=== PATIENT | male | born 1950 | race Caucasian/White ===

== ENCOUNTER → 2016-10-24 | Outpatient (CLI) | payer OTHER ==
[~2016-10-24] MED LIST: ASPCH81; LRT5 PO; MULT-506 PO
[2016-10-24 13:16] LABS: ALT/SGPT 26 U/L (12-78); AST/SGOT 21 U/L (15-37); BLOOD UREA NITROGEN 25 mg/dl (7-18); BUN/CREATININE RATIO 20.9 (10-20); CALCIUM 8.7 mg/dl (8.5-10.1); CARBON DIOXIDE 31 mmol/L (21-32); CHLORIDE 106 mmol/L (98-107); CHOLESTEROL 170 mg/dl (0-200); GLUCOSE 95 mg/dl (70-99); POTASSIUM 4.2 mmol/L (3.5-5.1); SODIUM 142 mmol/L (136-145)
[2016-10-24 13:27] LABS: ALB/GLOB RATIO 1.7 (0.9-2); ALKALINE PHOSPHATASE 50 U/L (45-117); CHOLESTEROL/HDL RATIO 3.7; HDL CHOLESTEROL 46 mg/dl; LDL CHOLESTEROL CALCULATED 109 mg/dl; TRIGLYCERIDES 74 mg/dl (0-150); VERY LOW DENSITY LIPOPROT CALC 15 mg/dl
== END | disposition home or self-care (01) ==
LOC: C.LABPVFM 08:18
PROVIDERS: ATTEND Family Medicine
DX: I10 Essential (primary) hypertension (principal); E78.5 Hyperlipidemia, unspecified; I27.2 Other secondary pulmonary hypertension; F43.10 Post-traumatic stress disorder, unspecified

== ENCOUNTER → 2017-04-24 | Outpatient (CLI) | payer OTHER ==
[2017-04-24 12:43] LABS: ALT/SGPT 19 U/L (12-78); BLOOD UREA NITROGEN 26 mg/dl (7-18); BUN/CREATININE RATIO 21.8 (10-20); CALCIUM 8.9 mg/dl (8.5-10.1); CARBON DIOXIDE 28 mmol/L (21-32); CHLORIDE 108 mmol/L (98-107); CHOLESTEROL 164 mg/dl (0-200); GLUCOSE 97 mg/dl (70-99); POTASSIUM 4.1 mmol/L (3.5-5.1); SODIUM 142 mmol/L (136-145)
[2017-04-24 12:46] LABS: ALB/GLOB RATIO 1.6 (0.9-2); ALKALINE PHOSPHATASE 56 U/L (45-117); AST/SGOT 15 U/L (15-37); CHOLESTEROL/HDL RATIO 3.6; HDL CHOLESTEROL 46 mg/dl; LDL CHOLESTEROL CALCULATED 104 mg/dl; TRIGLYCERIDES 69 mg/dl (0-150); VERY LOW DENSITY LIPOPROT CALC 14 mg/dl
== END | disposition home or self-care (01) ==
LOC: C.LABPVFM 09:52
PROVIDERS: ATTEND Family Medicine
DX: I10 Essential (primary) hypertension (principal); E78.5 Hyperlipidemia, unspecified; R35.1 Nocturia; I27.2 Other secondary pulmonary hypertension; F43.10 Post-traumatic stress disorder, unspecified

== ENCOUNTER → 2017-10-21 | Outpatient (CLI) | payer OTHER ==
[2017-10-21 13:10] LABS: ALT/SGPT 25 U/L (12-78); AST/SGOT 18 U/L (15-37); BLOOD UREA NITROGEN 27 mg/dl (7-18); CALCIUM 9.1 mg/dl (8.5-10.1); CARBON DIOXIDE 29 mmol/L (21-32); CREATININE 1.16 mg/dl (0.60-1.40); GLUCOSE 106 mg/dl (70-99); POTASSIUM 4.1 mmol/L (3.5-5.1); SODIUM 141 mmol/L (136-145)
[2017-10-21 13:12] LABS: ALKALINE PHOSPHATASE 68 U/L (45-117); CHOLESTEROL 168 mg/dl (0-200); LDL CHOLESTEROL CALCULATED 109 mg/dl; TOTAL PROTEIN 6.8 gm/dl (6.4-8.2)
== END | disposition home or self-care (01) ==
LOC: C.LABPVFM 08:40
PROVIDERS: ATTEND Family Medicine
DX: I10 Essential (primary) hypertension (principal); R01.1 Cardiac murmur, unspecified; E78.5 Hyperlipidemia, unspecified; F43.10 Post-traumatic stress disorder, unspecified

== ENCOUNTER → 2018-02-18 | Outpatient (CLI) | payer OTHER ==
[~2018-02-18] MED LIST changes: -ASPCH81; +CARV3.122 PO; +CHOL400T PO; +HYDR-5688 PO; -LRT5 PO; -MULT-506 PO; +MULT-839 PO; +SERT-234 PO
--- NOTE | 2018-02-18 14:17 | DIAGNOSTIC IMAGING REPORT ---
CHEST 2 VIEWS ROUTINE CLINICAL HISTORY: J94.2 Hemopneumothorax COMPARISON STUDY: 02/04/2018 FINDINGS: The heart is borderline enlarged. There is a small left pleural effusion with associated left lower lobe atelectasis/consolidation. No pneumothorax is visualized.[ IMPRESSION: Small left pleural effusion with persistent left lower lobe atelectasis/consolidation. Electronically signed by: Wilson Cutler M.D. 02/18/2018 2:15 PM Dictated Date/Time: 02/18/2018 2:15 PM
== END | disposition home or self-care (01) ==
LOC: C.RAD 14:01
PROVIDERS: ATTEND Surgery
DX: J94.2 Hemothorax (principal)

== ENCOUNTER → 2018-03-06 | Outpatient (CLI) | payer OTHER ==
[~2018-03-06] MED LIST changes: +MULT-506 PO
--- NOTE | 2018-03-06 13:57 | DIAGNOSTIC IMAGING REPORT ---
(CHEST) THORAX WITHOUT CLINICAL HISTORY: 67 years-old Male presenting with J94.2 Hemopneumothorax. TECHNIQUE: Multidetector CT imaging of the chest was performed without the use of intravenous contrast. IV contrast: None. A dose lowering technique was used consistent with the principles of ALARA (as low as reasonably achievable). COMPARISON: 02/02/2018 and chest x-ray from 02/18/2018. CT DOSE (mGy.cm): The estimated cumulative dose is 486.80 mGy.cm. FINDINGS: [employer] topogram: Left basilar opacity. On soft tissue windows, normal thyroid and thoracic inlet. Enlarged bilateral axillary lymph nodes. And index node in the left axilla now measures 1.5 cm in the short axis (series 4 image 119), previously 13 mm. Retropectoral nodes also enlarged bilaterally. Enlarged lymph nodes in the supraclavicular fossae, left greater than right. An index node in the left supraclavicular fossa measures 13 mm in the short axis (series 4 image 42), previously 9 mm. Mediastinal lymphadenopathy also noted the previously measured prevascular lymph node now measures 12 mm in the short axis (series 4 image 70), previously 11 mm. Evaluation of veronica limited in the absence of intravenous contrast. Numerous paraspinal and retrocrural pathologically enlarged lymph nodes. Atherosclerosis of the aorta. Normal heart size. Coronary artery calcification. Moderate left pleural effusion significantly increased from prior. This is water density and simple appearing allowing for the absence of intravenous contrast. No pericardial or right pleural effusion. Enlarged lymph nodes in the gastrohepatic region (series 4 image 248), unchanged. On lung windows, dependent consolidation and volume loss in the left lower lobe consistent with passive atelectasis. Calcified granulomata at the right apex. Minimal patchy groundglass opacities in the right lower lobe new from prior. Few additional granulomata evident in the left lung. Central airways patent. No pneumothorax. On bone windows, degenerative changes of the spine. Evidence of interval healing of the left fourth through eighth rib fractures. Few benign hemangiomas also noted in the vertebral bodies. Unchanged lytic focus in the coracoid process of the left scapula. IMPRESSION: 1. Significant interval increase in size of the now moderate left pleural effusion with associated passive atelectasis in the left lower lobe. No pneumothorax or evidence of hemothorax. 2. Slight interval worsening multifocal lymphadenopathy involving the axillary, supraclavicular fossae, mediastinum, and paraspinal/retrocrural regions. Suspected involvement of the gastrohepatic region. This is concerning for lymphoproliferative disease or metastatic disease. 3. Unchanged indeterminate lytic bone lesion in the left scapula. 4. Interval healing of left rib fractures. Electronically signed by: Art Ventura M.D. 03/06/2018 1:56 PM Dictated Date/Time: 03/06/2018 1:47 PM
== END | disposition home or self-care (01) ==
LOC: C.CTS 13:14
PROVIDERS: ATTEND Physician Assistant
DX: J94.2 Hemothorax (principal)

== ENCOUNTER → 2018-03-10 | Day surgery (SDC) | payer OTHER ==
[~2018-03-10] VITALS: Ht 177.8 cm; Wt 95.0 kg
[~2018-03-10] MED LIST changes: +OXYCODONE HCL IR 5 MG TAB (IMMEDIATE RELEASE) ONE
[2018-03-10 12:49] VITALS: BP 152/82; PULSE 59; TEMP 37.2; O2SAT 96; Ht 177.8 cm; Wt 95.0 kg
--- NOTE | 2018-03-10 14:11 | [facility] Post Operative Brief Note ---
Immediate Operative Summary Operative Date Mar 10, 2018. Pre-Operative Diagnosis left pleural effusion Post-Operative Diagnosis same Procedure(s) Performed Left thoracentesis under ultrasound guidance Surgeon Jone Min[employer] Clerk For [employer] Surgeon(s) none Estimated Blood Loss 0 Findings Consistent with Post-Op Diagnosis Specimens 400 cc's bloddy fluid / non-clotting Drains None
--- NOTE | 2018-03-10 14:27 | DIAGNOSTIC IMAGING REPORT ---
CHEST ONE VIEW PORTABLE CLINICAL HISTORY: Left thoracentesis. COMPARISON STUDY: Chest CT March 06, 2018. FINDINGS: There is no pneumothorax status post left thoracentesis. Left pleural effusion has significantly decreased in size. There is a trace residual pleural effusion with left basilar opacity. Cardiomediastinal silhouette is stable. There is no evidence for pulmonary edema. IMPRESSION: No pneumothorax following left thoracentesis. Trace residual left pleural effusion with mild left basilar opacity. Electronically signed by: Ricardo Barry M.D. 03/10/2018 2:25 PM Dictated Date/Time: 03/10/2018 2:23 PM
[2018-03-10 14:30] VITALS: BP 142/79; PULSE 61; TEMP 36.9; O2SAT 97
--- NOTE | 2018-03-10 14:58 | OPERATIVE REPORT ---
DATE OF OPERATION: 03/10/2018 PREOPERATIVE DIAGNOSIS: Left pleural effusion following rib fractures from blunt chest trauma. POSTOPERATIVE DIAGNOSIS: Left pleural effusion following rib fractures from blunt chest trauma. PROCEDURE: Left thoracentesis under ultrasound guidance. SURGEON: Navdeep Becerril MD ANESTHESIA: Local. SPECIFICS OF PROCEDURE: Colby Johns is a 67-year-old who fell and broke his left chest well over a month ago. This happened to him on 02/02/2018. He was felt to be probably dehydrated but he fell at home when he got up in the middle of the night to urinate and fractured his left posterior and 5th ribs. The patient does have some lymphadenopathy and it was felt that he may be dealing with a hematopoietic problem, but he really has not changed much in the last few years from this regard. At any rate, he presented back for followup and seemed to have some fluid on his chest x-ray so we did a CT scan and he did have more fluid than I was comfortable with. We had a long talk about this and I elected to proceed with a thoracentesis as an outpatient. DESCRIPTION OF PROCEDURE: On 03/10/2018, the patient underwent an uncomplicated left thoracentesis under ultrasound guidance. He was seen in the upright position. His chest was prepped and draped in the usual sterile fashion after the ultrasound had allowed us to localize a window just lateral to the posterior axillary line in the left lower chest. He was prepped and draped in the usual sterile fashion and after appropriate timeout had been called, 25 gauge needle and 1% Xylocaine were used to raise a skin wheal. A large bore needle was then used to anesthetize the intercostal muscles and deeper tissues and pleura and got free flowing, light bloody fluid. A large bore needle was then used to enter pleural cavity and got free flowing fluid. A soft J-tipped guidewire was inserted through the needle and needle removed and a dilator gently slid over the guidewire and then removed. Triple lumen catheter was slid into 17 cm. Approximately 400 mL of a dark bloody fluid was drained, which was nonclotting. He had a tremendous amount of reexpansion pain. I do not think he had much more than this in there, so we went ahead and stopped. A chest x-ray is pending at this time. I removed the chest catheter and placed antimicrobial. He had no bleeding. He had settled down quite a bit by the time we were finished. I attest to the content of the Intraoperative Record and any orders documented therein. Any exception s are noted below.
== END | disposition home or self-care (01) ==
LOC: C.ACU 12:07
PROVIDERS: ATTEND Surgery
DX: J90 Pleural effusion, not elsewhere classified (principal); K57.30 Diverticulosis of large intestine without perforation or abscess without bleeding; I10 Essential (primary) hypertension; F43.10 Post-traumatic stress disorder, unspecified; E78.5 Hyperlipidemia, unspecified; Z87.891 Personal history of nicotine dependence

== ENCOUNTER 2023-12-10 09:56 | Inpatient (IN) ==
[2023-12-10] MEDS: MoRPHine SULFATE 4 MG/ML 1 ML CARP\\VIAL IV STA (10:49)
[2023-12-10] MEDS: ONDANSETRON INJ 2 MG/ML 2 ML VIAL IV STA (10:49)
[2023-12-10 10:54] LABS: Basophils # (auto) 0.01 K/uL (0.00-0.20); Basophils % (auto) 0.1 %; Eosinophils # (auto) 0.05 K/uL (0.00-0.50); Eosinophils % (auto) 0.6 %; Hematocrit (blood only) 37.2 % (42.0-52.0); Hemoglobin 12.5 g/dl (14.0-18.0); Immature Granulocytes # (auto) 0.04 K/uL (0.01-0.20); Immature Granulocytes % (auto) 0.5 %; Lymphocytes # (auto) 0.71 K/uL (1.20-3.40); Lymphocytes % (auto) 8.5 %; Mean Corpuscular Hemoglobin 29.6 pg (25.0-34.0); Mean Corpuscular Hgb Conc 33.6 g/dL (32.0-36.0); Mean Corpuscular Volume 88.2 fL (80.0-100.0); Mean Platelet Volume 10.9 fL (9.4-12.4); Monocytes # (auto) 0.35 K/uL (0.11-0.59); Monocytes % (auto) 4.2 %; Neutrophils # (auto) 7.17 K/uL (1.40-6.50); Neutrophils % (auto) 86.1 %; Platelet Count 107 K/uL (130-400); RDW Coefficient of Variation 13.5 % (11.5-14.5); RDW Standard Deviation 43.9 fL (36.4-46.3); Red Blood Count 4.22 M/uL (4.70-6.10); White Blood Count 8.33 K/ul (4.8-10.8)
[2023-12-10 11:05] LABS: Albumin Globulin Ratio 1.8 (0.9-2); Albumin Level 4.2 gm/dl (3.4-5.0); Calcium 9.9 mg/dl (8.6-10.3); Creatinine Clr Calc Pharmacy 70.9 ml/min; Est GFR (African American) 81.2 ml/min; Est GFR (Non-African American) 70.1 ml/min; Globulin 2.4 gm/dl (2.5-4.0); Magnesium 1.8 mg/dl (1.7-2.4); Potassium 3.9 mmol/L (3.5-5.1); Total Protein 6.6 gm/dl (6.0-8.3)
[2023-12-10 11:20] LABS: Thyroid Stimulating Hormone 3.584 uIu/ml (0.300-4.500)
--- NOTE | 2023-12-10 11:23 | XRay Report ---
XR chest 1V portable HISTORY: 73 years-old Male weakness COMPARISON: Chest CT 04/23/2023 TECHNIQUE: AP view of the chest FINDINGS: Cardiac silhouette is enlarged. No pneumothorax, pleural effusion, or pulmonary edema. Ill-defined le ft upper lung opacity is likely projectional. Bones appear grossly intact. IMPRESSION: Ill-defined left upper lung opacity is likely projectional/artifactual. This could be cor related with follow-up PA and lateral views of the chest. ACT 112: Negative or not required by law. The above report was generated using voice recognition software. It may contain grammatical, syntax o r spelling errors. Electronically signed by: Dustin Mckeon M.D. 12/10/2023 11:22 AM
[2023-12-10] MEDS: OPTIRAY 320 100ml IV ONE (11:25)
--- NOTE | 2023-12-10 11:50 | CT Scan Report ---
ABDOMEN AND PELVIS CT WITH IV CONTRAST CT DOSE: 1521.72 mGy.cm HISTORY: Acute right inguinal pain with abdominal distention R inguinal hernia and pain TECHNIQUE: Multiaxial CT images of the abdomen and pelvis were performed following the IV administrat ion of 94 cc of Optiray, A dose lowering technique was utilized adhering to the principles of ALARA. COMPARISON STUDY: 04/23/2023 FINDINGS: Mild cardiomegaly. Clear lung bases. No free air. Unremarkable spleen, pancreas, gallbladde r, adrenal glands and liver. Patency of the hepatic and portal veins. Mild cortical thinning of the k idneys. Scattered mostly subcentimeter hypodensities of the right kidney are suggestive of probable c ysts. 1.1 cm nonobstructing calculus of the inferior pole right kidney. No ureteral calculi or hydron ephrosis. Urinary bladder wall thickening with partial distention. Prostatomegaly. Atherosclerosis of the aorta without aneurysm or dissection. No lymphadenopathy. Tiny hiatal hernia. 2.4 cm submucosal lipoma of the distal stomach/proximal duodenum. Colonic diverti culosis without acute diverticulitis. Air and fluid-filled loops of large and small bowel. Normal bita endix. Small bowel obstruction secondary to a large right inguinal hernia, opening of the hernia sac measuring approximately 4 cm and contains mesenteric fat, ascites, portion of the urinary bladder and an obstructed loop of ileum. Loops of ileum upstream to the area of obstruction demonstrates circumf erential wall thickening with mild interloop edema. No pneumatosis. No acute fracture. Degenerative changes of the spine and pelvis. IMPRESSION: 1. Large right inguinal hernia contains mesenteric fat, ascites, a portion of the urinary bladder and a loop of ileum resulting in associated small bowel obstruction. 2. No pneumatosis or pneumoperitoneum. 3. Right nephrolithiasis. 4. Additional findings as above. ACT 112: Negative or not required by law. The above report was generated using voice recognition software. It may contain grammatical, syntax o r spelling errors. Electronically signed by: Dustin Mckeon M.D. 12/10/2023 11:49 AM
--- NOTE | 2023-12-10 12:04 | Electrocardiogram Report ---
Test Reason : Blood Pressure : / mmHG Vent. Rate : 056 BPM Atrial Rate : 056 BPM P-R Int : 164 ms QRS Dur : 094 ms QT Int : 434 ms P-R-T Axes : 019 -48 -06 degrees QTc Int : 418 ms Sinus bradycardia Left anterior fascicular block Minimal voltage criteria for LVH, may be normal variant Incomplete right bundle branch block Abnormal ECG When compared with ECG of 25-MAR-2022 21:44, No significant change was found Confirmed by Chirag Peres ([id number]) on 12/10/2023 12:04:47 PM Referred By: REFERRED SELF Confirmed By:Jose Rafael Peres
--- NOTE | 2023-12-10 12:05 | Emergency Department Note ---
Impression & Plan Incarcerated right inguinal hernia, Small bowel obstruction, Abdominal pain ED Provider Note NAME: MELIA LICONA AGE: 73 SEX: M : 1950 ARRIVES VIA: Ambulance INFORMANT: Patient, , initial triage note ED PROVIDER(S): Misha Solitario MD CHIEF COMPLAINT: Abdominal pain, nausea vomiting and diarrhea MEDICAL DECISION MAKING: Patient presents due to concern for abdominal pain nausea vomiting diarrhea. IV was established and blood work was obtained. Patient with right incarcerated inguinal hernia suspicious right-sided inguinal hernia with pain to palpation. CT abdomen pelvis ordered and patient was ordered IV morphine and IV Zofran and IV fluid. Blood work shows a normal white count with a hemoglobin of 12.5 which is chronic and stable. Platelet count of 107. This is also chronic and stable. Kidney function is unremarkable. LFTs unremarkable with normal TSH. CT abdomen pelvis does show concern for right inguinal hernia with associated small bowel obstruction. No evidence of pneumatosis and pneumoperitoneum. Patient's chest x-ray shows ill-defined left upper lung opacity likely artifactual. The patient is not had any cough. I did speak with the on-call hospitalist service Dr. Cordero and also spoke with Grover Hernandez with Dr. Judith Thomas given the patient's incarcerated inguinal hernia and associated small bowel obstruction. The patient went to the OR before an NG was placed. Discussion w/ other healthcare providers: [facility] inpatient medicine service Grover Hernandez and Dr. Judith Thomas general surgery Prior /Outside records reviewed: None Differential diagnosis: Appendicitis, testicular torsion, UTI, diverticulitis, obstruction, renal colic, mesenteric adenitis, enteririts, PUD, pancreatitis, biliary pathology, hernia, volvulus, constipation, as well as other pathologies were considered. Diagnostics, as interpreted by me: ECG: None Cardiac monitoring: An order was placed for continuous cardiac monitoring. The monitor shows a rate of 62 with sinus rhythm. Patient was placed on pulse oximetry Medical decision rules: None Imaging studies: I informally interpreted the patient's CT abdomen pelvis which does show concern for bowel obstruction with formal report to follow. I informally interpreted the patient's chest x-ray which does not show obvious pneumonia or pneumothorax HPI: Patient presents due to concern for abdominal pain nausea vomiting diarrhea. The patient states that this began last evening. Patient denies any chest pains or shortness of breath. Patient states that he has not had as much emesis but was having some looser stools. Patient states that started around noon yesterday. They did have a boil water notice in [place] which was rescinded about a week ago. The patient also does complain of some right inguinal pain has a known history of inguinal hernia. Patient denies any blood in the urine or stool. PAST MEDICAL HISTORY: See Below PAST SURGICAL HISTORY: See Below SOCIAL HISTORY: See Below HOME MEDICATIONS: See Below ALLERGIES: See Below VITALS: See Below PHYSICAL EXAMINATION: GENERAL: NAD, non-toxic. EYE EXAM: Normal conjunctiva. PERRL, no anisocoria and EOM's grossly intact w/o pain. OROPHARYNX: Moist mucus membranes, grossly normal dentition. NECK: Trachea midline, no stridor. LUNGS: Clear to auscultation. Normal chest wall mechanics. HEART: NSR, no MRG. ABDOMEN: Abdomen soft, right lower inguinal pain, no masses, no rebound or guarding. BACK: No CVA TTP. SKIN: No rashes and no bruising. UPPER EXTREMITIES: Upper extremities are grossly normal. LOWER EXTREMITIES: Grossly normal, no edema. NEURO EXAM: A&O x3, cranial nerves II-XII grossly intact, normal speech, moves all 4 extremities. Past Med/Surg History Problem List (Updated 12/10/23 @ 16:34 by Misha Solitario MD) Abdominal pain (Acute) Small bowel obstruction (Acute) Incarcerated right inguinal hernia (Acute) Incarcerated right inguinal hernia Diarrhea Small bowel obstruction Posttraumatic stress disorder, delayed onset Parkinson disease Tremor Thoracic kyphosis Chronic diarrhea Pulmonary hypertension Hypertension (Chronic) Hyperlipidemia BORDERLINE Anxiety Depression (Chronic) Glaucoma Pancytopenia FOLLOWING WITH DR. SUE (ONCOLOGY) Cancer SKIN CANCER B-cell lymphoma (Acute) Lymphoma, small lymphocytic (Acute) Vitamin D deficiency Sacroiliac strain Pleural effusion, left Murmur Left ventricular hypertrophy History of chemotherapy (Acute) Hemopneumothorax (Acute) Elevated blood sugar level (Acute) Back pain of lumbar region with sciatica (Acute) Cognitive impairment (Chronic) Orthostatic hypotension (Acute) Falls (Chronic) PVC (premature ventricular contraction) PAC (premature atrial contraction) PTSD (post-traumatic stress disorder) Right inguinal hernia (Acute) Straining on urination Encounter for pre-operative examination Colon cancer screening Routine health maintenance (Chronic) Chronic left shoulder pain Orthostatic hypotension Impacted cerumen of left ear ED (erectile dysfunction) COVID-19 virus infection Encounter for examination following treatment at hospital Postural kyphosis of thoracic region Mid back pain Cervical facet joint syndrome Lumbar facet joint syndrome Lumbar degenerative disc disease Myofascial pain Cervicalgia Lumbago CLL (chronic lymphocytic leukemia) (Chronic) Follows with Dr. Sue HX RADIATION/CHEMO TREATMENTS Medical History History of COVID-19 01/2022--mild symptoms, no symptoms now Hypertension CURRENTLY SELF MONITORING BP AT HOME Hx of glaucoma History of kidney stones History of rib fracture 2017. Eye problem Hereditary disease...B/L History of skin cancer Arthritis Particularly severe in neck -- pt has significant pain when laying flat, requires head to be elevated Basal cell tumor Diverticulosis of colon Inguinal hernia Scoliosis Hearing deficit Surgical History History of cataract surgery RT/LEFT History of colonoscopy last 03/01/20 @ [facility] History of tooth extraction Hx of eye surgery RT/LEFT EYE LASER SURGERY FOR GLAUCOMA History of thoracentesis SUMMER 2017/PUNCTURED LUNG AFTER FALLING/FX RIBS Family History Mother Alzheimer disease Dementia Breast cancer Hypertension Father , age 78 FH: kidney cancer COPD (chronic obstructive pulmonary disease) Hypertension Brother Prostate cancer Depression Thyroid disease Son AA (alcohol abuse) Grandmother (Paternal) Stroke Aunt Breast cancer Stroke Grandmother (Maternal) Breast cancer Other No family history of adverse response to anesthesia Denies family history of Ovarian cancer Myocardial infarction Colorectal cancer Social History Smoking Status: Never smoker Second Hand Exposure: No ( A CHILD); Do You Dip or Chew Tobacco: No (quit chewing); Hx Alcohol Use: Yes Alcohol type: beer Hx Substance Use: No Preferred Language: Syriac Communication Ability: Effective Visual Impairment: No Limitations Hearing Ability: Hard of Hearing Bioinformatics Specialist Required: No Beliefs That Will Affect Care: None marital status: Current Living Situation: Spouse current occupational status: retired 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 How many Children do You have: 1 Feels Safe at Home: Yes Childhood Exposure to Second-Hand Smoke: Yes Diet: regular caffeine: Yes Dental Care, Regularly: Yes Physical Activity Frequency: 3-4 Times per Week Seatbelt Use: always Sunscreen Use: Yes Assistive Devices: Cane, Glasses and Hearing Aid - Bilateral Allergies Allergies Allergy/AdvReac Type Severity Reaction Status Date / Time No Known Allergies Allergy Mild Verified 12/10/23 12:22 Home Meds Home Medications Medication Instructions Recorded Confirmed cholecalciferol (vitamin D3) 50 2,000 unit PO QAM 10/01/19 12/10/23 mcg (2,000 unit) capsule (Vitamin D3) magnesium 250 mg tablet 250 mg PO HS 10/04/20 12/10/23 multivitamin 1 tab PO HS 11/04/20 12/10/23 loperamide 2 mg capsule (Imodium 2 mg PO Q6H PRN Diarrhea 12/06/22 12/10/23 A-D) mecobalamin (vitamin B12) 1,000 1,000 mcg PO HS 01/22/23 12/10/23 mcg chewable tablet Lactobacillus acidophilus 10 10,000 mmu cells PO DAILY 12/10/23 12/10/23 billion cell capsule (Probiotic) carbidopa ER 50 mg-levodopa 200 mg 1 tab PO HS 12/10/23 12/10/23 tablet,extended release Previous Rx's Medication Instructions Recorded sildenafil 50 mg tablet (Viagra) 50 mg PO DAILY PRN sexual activity 01/15/22 #20 tabs escitalopram oxalate 10 mg tablet 20 mg (2 x 10 mg) PO HS #180 tabs 06/07/23 (Lexapro) donepezil 10 mg tablet 10 mg PO HS #90 tabs 09/13/23 meloxicam 15 mg tablet 15 mg PO DAILY #30 tabs 10/24/23 carbidopa 25 mg-levodopa 100 mg 1 tab PO QID 30 days #120 tabs 10/25/23 tablet Results & Data (ED) Vital Signs Vital Signs - 24 hr 12/10/23 10:02 12/10/23 10:06 12/10/23 10:19 Temperature 36.6 C Temperature Source Oral Pulse Rate 57 L 56 L 58 L Pulse Rate [Finger] Pulse Rate from SpO2 Sensor 57 L Respiratory Rate 18 20 Respiratory Effort / Characteristics Non-Labored Spontaneous Respiratory Depth Normal Respiratory Pattern Blood Pressure 114/78 Blood Pressure [Left Arm] Blood Pressure Mean 90 Blood Pressure Mean [Left Arm] Pulse Oximetry 96 97 Oxygen Delivery Method Room Air Sepsis Recent Fever Within 48 Hours No Sepsis New/Unexplained Change in Mental Status No Sepsis Action Taken by Nursing No Action Required 12/10/23 10:30 12/10/23 10:32 12/10/23 10:50 Temperature Temperature Source Pulse Rate 58 L 57 L Pulse Rate [Finger] Pulse Rate from SpO2 Sensor 59 L 58 L Respiratory Rate 18 16 Respiratory Effort / Characteristics Respiratory Depth Respiratory Pattern Blood Pressure Blood Pressure [Left Arm] Blood Pressure Mean Blood Pressure Mean [Left Arm] Pulse Oximetry 98 97 97 Oxygen Delivery Method Sepsis Recent Fever Within 48 Hours Sepsis New/Unexplained Change in Mental Status Sepsis Action Taken by Nursing 12/10/23 10:50 12/10/23 11:00 12/10/23 11:00 Temperature Temperature Source Pulse Rate 54 L Pulse Rate [Finger] Pulse Rate from SpO2 Sensor 55 L Respiratory Rate 18 Respiratory Effort / Characteristics Respiratory Depth Respiratory Pattern Blood Pressure 131/69 153/94 H Blood Pressure [Left Arm] Blood Pressure Mean 90 111 Blood Pressure Mean [Left Arm] Pulse Oximetry 93 Oxygen Delivery Method Sepsis Recent Fever Within 48 Hours Sepsis New/Unexplained Change in Mental Status Sepsis Action Taken by Nursing 12/10/23 11:32 12/10/23 12:00 12/10/23 12:00 Temperature Temperature Source Pulse Rate 60 Pulse Rate [Finger] Pulse Rate from SpO2 Sensor 62 60 Respiratory Rate 13 16 Respiratory Effort / Characteristics Respiratory Depth Respiratory Pattern Blood Pressure 161/88 H Blood Pressure [Left Arm] Blood Pressure Mean 101 Blood Pressure Mean [Left Arm] Pulse Oximetry 95 96 Oxygen Delivery Method Sepsis Recent Fever Within 48 Hours Sepsis New/Unexplained Change in Mental Status Sepsis Action Taken by Nursing 12/10/23 12:30 12/10/23 13:04 Temperature 36.7 C Temperature Source Oral Pulse Rate 64 Pulse Rate [Finger] 58 L Pulse Rate from SpO2 Sensor 62 Respiratory Rate 16 20 Respiratory Effort / Characteristics Non-Labored Spontaneous Respiratory Depth Normal Respiratory Pattern Regular Blood Pressure Blood Pressure [Left Arm] 151/74 H Blood Pressure Mean Blood Pressure Mean [Left Arm] 99 Pulse Oximetry 95 97 Oxygen Delivery Method Room Air Sepsis Recent Fever Within 48 Hours Sepsis New/Unexplained Change in Mental Status Sepsis Action Taken by Intermediate Medications Current Medication List: was personally reviewed by me Laboratory Data Attestation: I reviewed the patient's lab results. 12/10/23 10:08 12/10/23 10:08 Lab Results 12/10/23 Range/Units 10:08 WBC 8.33 (4.8-10.8) K/ul RBC 4.22 L (4.70-6.10) M/uL Hgb 12.5 L (14.0-18.0) g/dl Hct 37.2 L (42.0-52.0) % MCV 88.2 (80.0-100.0) fL MCH 29.6 (25.0-34.0) pg MCHC 33.6 (32.0-36.0) g/dL RDW Std Deviation 43.9 (36.4-46.3) fL RDW Coeff of [place] 13.5 (11.5-14.5) % Plt Count 107 L (130-400) K/uL MPV 10.9 (9.4-12.4) fL Immature Gran % (Auto) 0.5 % Neut % (Auto) 86.1 % Lymph % (Auto) 8.5 % [place] % (Auto) 4.2 % Eos % (Auto) 0.6 % Baso % (Auto) 0.1 % Neut # (Auto) 7.17 H (1.40-6.50) K/uL Lymph # (Auto) 0.71 L (1.20-3.40) K/uL [place] # (Auto) 0.35 (0.11-0.59) K/uL Eos # (Auto) 0.05 (0.00-0.50) K/uL Baso # (Auto) 0.01 (0.00-0.20) K/uL Immature Gran # (Auto) 0.04 (0.01-0.20) K/uL Sodium 140 (136-145) mmol/L Potassium 3.9 (3.5-5.1) mmol/L Chloride 103 (98-107) mmol/L Carbon Dioxide 29 (21-32) mmol/L Anion Gap 8 (3-11) BUN 21 (6-23) mg/dl Creatinine 1.05 (0.6-1.4) mg/dl Est Cr Clr Drug Dosing 70.9 ml/min Est GFR ( Amer) 81.2 ml/min Est GFR (Non-Af Amer) 70.1 ml/min BUN/Creatinine Ratio 20.0 (10-20) Glucose 140 H (70-99(Fasting)) mg/dl Calcium 9.9 (8.6-10.3) mg/dl Magnesium 1.8 (1.7-2.4) mg/dl Total Bilirubin 1.0 (0.2-1.0) mg/dl AST 21 (13-39) U/L ALT 4 L (7-52) U/L Alkaline Phosphatase 66 (34-104) U/L Total Protein 6.6 (6.0-8.3) gm/dl Albumin 4.2 (3.4-5.0) gm/dl Globulin 2.4 L (2.5-4.0) gm/dl Albumin/Globulin Ratio 1.8 (0.9-2) TSH 3.584 (0.300-4.500) uIu/ml Administered Medications Cefazolin Sodium (Ancef 3000mg) 3,000 mg in 72.5 mls @ 130 mls/hr IV PREOP ARTI; Protocol Stop: 12/10/23 18:00 Last Admin: 12/10/23 14:20 Dose: 130 mls/hr Documented By: [id number] Lactated Ringer's (Lr) 1,000 mls @ 15 mls/hr IV .Q24H ARTI Stop: 01/09/24 13:29 Last Infusion: 12/10/23 13:34 Dose: Infused Documented By: Admin: 12/10/23 13:24 Dose: 15 mls/hr Documented By: MG Discontinued Medications Bacitracin (Bacitracin Oint 14 Gm Tube) Confirm Administered Dose 45 appln .ROUTE .STK-MED ONE Stop: 12/10/23 15:57 Last Admin: 12/10/23 15:58 Dose: 45 appln Documented By: FLOYD Bupivacaine HCl/Epinephrine Bitart (Bupivacaine/Epinephrine 0.5% Mpf 1:200,000 30 Ml Vial) Confirm Administered Dose 30 ml .ROUTE .STK-MED ONE Stop: 12/10/23 13:15 Last Admin: 12/10/23 15:58 Dose: 30 ml Documented By: [id number] Ioversol (Optiray 320 100ml) 94 ml IV ONCE ONE Stop: 12/10/23 11:26 Last Admin: 12/10/23 11:25 Dose: 94 ml Documented By: REZA Morphine Sulfate (Morphine Sulfate 4 Mg/Ml 1 Ml Carp\Vial) 4 mg IV NOW STA Stop: 12/10/23 10:38 Last Admin: 12/10/23 10:49 Dose: 4 mg Documented By: HS Ondansetron HCl (Ondansetron Inj 2 Mg/Ml 2 Ml Vial) 4 mg IV NOW STA Stop: 12/10/23 10:38 Last Admin: 12/10/23 10:49 Dose: 4 mg Documented By: HS Imaging Data Radiologist's Impression: Chest X-Ray 12/10/23 10:32 XR chest 1V portable HISTORY: 73 years-old Male weakness COMPARISON: Chest CT 04/23/2023 TECHNIQUE: AP view of the chest FINDINGS: Cardiac silhouette is enlarged. No pneumothorax, pleural effusion, or pulmonary edema. Ill-defined left upper lung opacity is likely projectional. Bones appear grossly intact. IMPRESSION: Ill-defined left upper lung opacity is likely projectional/artifactual. This could be correlated with follow-up PA and lateral views of the chest. ACT 112: Negative or not required by law. The above report was generated using voice recognition software. It may contain grammatical, syntax or spelling errors. Electronically signed by: Dustin Mckeon M.D. 12/10/2023 11:22 AM Abdomen/Pelvis CT 12/10/23 10:[address] WITH IV CONTRAST CT DOSE: 1521.72 mGy.cm HISTORY: Acute right inguinal pain with abdominal distention R inguinal hernia and pain TECHNIQUE: Multiaxial CT images of the abdomen and pelvis were performed following the IV administration of 94 cc of Optiray, A dose lowering technique was utilized adhering to the principles of ALARA. COMPARISON STUDY: 04/23/2023 FINDINGS: Mild cardiomegaly. Clear lung bases. No free air. Unremarkable spleen, pancreas, gallbladder, adrenal glands and liver. Patency of the hepatic and portal veins. Mild cortical thinning of the kidneys. Scattered mostly subcentimeter hypodensities of the right kidney are suggestive of probable cysts. 1.1 cm nonobstructing calculus of the inferior pole right kidney. No ureteral calculi or hydronephrosis. Urinary bladder wall thickening with partial distention. Prostatomegaly. Atherosclerosis of the aorta without aneurysm or dissection. No lymphadenopathy. Tiny hiatal hernia. 2.4 cm submucosal lipoma of the distal stomach/proximal duodenum. Colonic diverticulosis without acute diverticulitis. Air and fluid- filled loops of large and small bowel. Normal appendix. Small bowel obstruction secondary to a large right inguinal hernia, opening of the hernia sac measuring approximately 4 cm and contains mesenteric fat, ascites, portion of the urinary bladder and an obstructed loop of ileum. Loops of ileum upstream to the area of obstruction demonstrates circumferential wall thickening with mild interloop edema. No pneumatosis. No acute fracture. Degenerative changes of the spine and pelvis. IMPRESSION: 1. Large right inguinal hernia contains mesenteric fat, ascites, a portion of the urinary bladder and a loop of ileum resulting in associated small bowel obstruction. 2. No pneumatosis or pneumoperitoneum. 3. Right nephrolithiasis. 4. Additional findings as above. ACT 112: Negative or not required by law. The above report was generated using voice recognition software. It may contain grammatical, syntax or spelling errors. Electronically signed by: Dustin Mckeon M.D. 12/10/2023 11:49 AM Discharge Plan Visit Data Chief Complaint: Illness ED Provider: Misha Solitario Discharge Problem: Incarcerated right inguinal hernia, Small bowel obstruction, Abdominal pain Patient Disposition: Admitted As Inpatient Discharge Instructions Interventions: ED Discharge Assessment Last Done: 12/10/23 13:02 Discharge Problem: Abdominal pain Qualifiers: Abdominal location: lower abdomen, unspecified Qualified Code(s): R10.30 - Lower abdominal pain, unspecified
--- NOTE | 2023-12-10 12:07 | History & Physical Report ---
Date of Service December 10, 2023 Assessment & Plan (1) Small bowel obstruction: Plan: Small bowel obstruction due to large right inguinal hernia with contained bowel Nausea/vomiting and right inguinal pain started suddenly when patient was lifting a gas can. He did have some diarrhea preceding this earlier in the week No leukocytosis No signs of pneumatosis or incarceration on CT N.p.o., NGT to LIS Antiemetics, scaled pain control Surgery consulted --> expected for OR/surgical management 12/09. RCRI class I risk, low risk 3.9% 30-day risk of /MD/cardiac arrest. Patient does endorse some chronic shortness of breath and expiratory wheezing. There is a projection overlying his chest x-ray, given some shortness of breath and wheezing will obtain PA/lateral view for further characterization (2) Diarrhea: Plan: Patient does endorse that he has had completely liquid diarrhea in the week before his pain started at his hernia, and this preceded his nausea/vomiting No recent antibiotic use As he was having multiple episodes of liquid diarrhea which preceded the acute onset of his hernia associate obstruction, will obtain stool study/C. difficile . No signs of colitis on CT (3) B-cell lymphoma: Plan: On surveillance CBC shows a white count of 8.3, no blasts No acute change in management on admission (4) Parkinson disease: Plan: Parkinson's disease with some cognitive impairment Patient did take his carbidopa levodopa this morning, however has had an episode of emesis around 9 PM Oral meds held while n.p.o. Aricept held while n.p.o. (5) Left ventricular hypertrophy: Plan: Patient denies history of CHF or need for diuresis Reports he does some yard work and is able to walk from his house to the shed daily with no limiting anginal symptoms EKG with incomplete right bundle redemonstrated from prior, no acute ischemic changes Echo 2018: EF 60 to 65%, normal LV wall motion, mild concentric LVH. Mild ME, trace TR, trace MR Plan DVT prophylaxis: SCDs, pharmacal prophylaxis held pending surgical evaluation Diet: N.p.o., IV FM Disposition: Medical/surgical CODE STATUS: DNR/DNI. Discussed with patient and his at the bedside at time of admission. History of Present Illness Primary Care Provider: Colleen Chapman MD Colby is a 73-year-old male with past medical history of depression/anxiety on Lexapro, cognitive impairment, chronic left shoulder pain, CLL stable and on rou sg follow-up with oncology, right inguinal hernia for which surgical repair had been deferred 04/2023 due to concerns about the mesh, cervical facet joint syndrome followed by orthospine, Parkinson's disease on Sinemet 4 times daily with ER at bedtime and some associated cognitive decline presents to the emergency department with over 10 episodes of vomiting and 15 episodes of diarrhea over the last 12-16 hours, no hematemesis/hematochezia/melena. On ER assessment he is normotensive and bradycardic, he does not have a leukocytosis, does not have an BRITTANY. CTA/P shows a large right inguinal hernia with mesenteric fat/ascites/urinary bladder/loop of ileum contained resulting in an associated small bowel obstruction. No pneumatosis or pneumoperitoneum is seen. EKG on admission is sinus bradycardia with an incomplete right bundle branch block, QTc 418 no territorial ischemic changes; incomplete right bundle branch block which previously demonstrated February 2022. Patient seen with his present at the bedside. He reports his symptoms started abruptly yesterday afternoon when he was lifting a gas can and all of a sudden had pain in his right inguinal hernia site and then developed worsening nausea/vomiting. No bloody or black content in his emesis. He notes he was having several episodes per day of very loose/liquid diarrhea for a few days that preceded this and that he "had been feeling a little off ". No history of C. difficile, no recent antibiotic use. Has not had nausea/vomiting until last night. Denies any history of CHF. No chest pain or chest pressure. Has had intermittent wheezing but denies history of smoking use, asthma, COPD. Did take his medications this morning, but also had vomiting around 9 AM. Denies history of insulin treatment Medical History: Reviewed Medications: Reviewed Surgical History: Reviewed Family history: Reviewed Allergies: Reviewed Social History: Reviewed Code Status: DNR/DNI Allergies Allergy/AdvReac Type Severity Reaction Status Date / Time No Known Allergies Allergy Mild Verified 12/10/23 12:22 Home Medications Medication Instructions Recorded Confirmed Type cholecalciferol (vitamin D3) 50 2,000 unit PO QAM 10/01/19 12/10/23 History mcg (2,000 unit) capsule (Vitamin D3) magnesium 250 mg tablet 250 mg PO HS 10/04/20 12/10/23 History multivitamin 1 tab PO HS 11/04/20 12/10/23 History sildenafil 50 mg tablet (Viagra) 50 mg PO DAILY PRN sexual activity 01/15/22 12/10/23 Rx #20 tabs loperamide 2 mg capsule (Imodium 2 mg PO Q6H PRN Diarrhea 12/06/22 12/10/23 History A-D) mecobalamin (vitamin B12) 1,000 1,000 mcg PO HS 01/22/23 12/10/23 History mcg chewable tablet escitalopram oxalate 10 mg tablet 20 mg (2 x 10 mg) PO HS #180 tabs 06/07/23 12/10/23 Rx (Lexapro) donepezil 10 mg tablet 10 mg PO HS #90 tabs 09/13/23 12/10/23 Rx meloxicam 15 mg tablet 15 mg PO DAILY #30 tabs 10/24/23 12/10/23 Rx carbidopa 25 mg-levodopa 100 mg 1 tab PO QID 30 days #120 tabs 10/25/23 12/10/23 Rx tablet Lactobacillus acidophilus 10 10,000 mmu cells PO DAILY 12/10/23 12/10/23 History billion cell capsule (Probiotic) carbidopa ER 50 mg-levodopa 200 mg 1 tab PO HS 12/10/23 12/10/23 History tablet,extended release Past Med/Surg History Problem List Incarcerated right inguinal hernia Diarrhea Small bowel obstruction Posttraumatic stress disorder, delayed onset Parkinson disease Tremor Thoracic kyphosis Chronic diarrhea Pulmonary hypertension Hypertension (Chronic) Hyperlipidemia BORDERLINE Anxiety Depression (Chronic) Glaucoma Pancytopenia FOLLOWING WITH DR. SUE (ONCOLOGY) Cancer SKIN CANCER B-cell lymphoma (Acute) Lymphoma, small lymphocytic (Acute) Vitamin D deficiency Sacroiliac strain Pleural effusion, left Murmur Left ventricular hypertrophy History of chemotherapy (Acute) Hemopneumothorax (Acute) Elevated blood sugar level (Acute) Back pain of lumbar region with sciatica (Acute) Cognitive impairment (Chronic) Orthostatic hypotension (Acute) Falls (Chronic) PVC (premature ventricular contraction) PAC (premature atrial contraction) PTSD (post-traumatic stress disorder) Right inguinal hernia (Acute) Straining on urination Encounter for pre-operative examination Colon cancer screening Routine health maintenance (Chronic) Chronic left shoulder pain Orthostatic hypotension Impacted cerumen of left ear ED (erectile dysfunction) COVID-19 virus infection Encounter for examination following treatment at hospital Postural kyphosis of thoracic region Mid back pain Cervical facet joint syndrome Lumbar facet joint syndrome Lumbar degenerative disc disease Myofascial pain Cervicalgia Lumbago CLL (chronic lymphocytic leukemia) (Chronic) Follows with Dr. Sue HX RADIATION/CHEMO TREATMENTS Medical History History of COVID-19 01/2022--mild symptoms, no symptoms now Hypertension CURRENTLY SELF MONITORING BP AT HOME Hx of glaucoma History of kidney stones History of rib fracture 2017. Eye problem Hereditary disease...B/L History of skin cancer Arthritis Particularly severe in neck -- pt has significant pain when laying flat, requires head to be elevated Basal cell tumor Diverticulosis of colon Inguinal hernia Scoliosis Hearing deficit Surgical History History of cataract surgery RT/LEFT History of colonoscopy last 03/01/20 @ [facility] History of tooth extraction Hx of eye surgery RT/LEFT EYE LASER SURGERY FOR GLAUCOMA History of thoracentesis SUMMER 2017/PUNCTURED LUNG AFTER FALLING/FX RIBS Family History Mother Alzheimer disease Dementia Breast cancer Hypertension Father , age 78 FH: kidney cancer COPD (chronic obstructive pulmonary disease) Hypertension Brother Prostate cancer Depression Thyroid disease Son AA (alcohol abuse) Grandmother (Paternal) Stroke Aunt Breast cancer Stroke Grandmother (Maternal) Breast cancer Other No family history of adverse response to anesthesia Denies family history of Ovarian cancer Myocardial infarction Colorectal cancer Social History Smoking Status: Never smoker Second Hand Exposure: No ( A CHILD); Do You Dip or Chew Tobacco: No (quit chewing); Hx Alcohol Use: Yes Alcohol type: beer Hx Substance Use: No Preferred Language: Serbian Communication Ability: Effective Visual Impairment: No Limitations Hearing Ability: Hard of Hearing Varitype Operator Required: No Beliefs That Will Affect Care: None marital status: Current Living Situation: Spouse current occupational status: retired 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 NAD. Cooperative. HEENT: Atraumatic, normocephalic. Vision/hearing grossly intact Pulm: Decreased end expiratory wheezes. Symmetrical chest rise. No increased work of breathing. No respiratory distress. Cardiac: RRR, -mrg. Radial pulses intact and symmetrical. Abdominal: Inguinal hernia as noted below, otherwise abdomen is nontender, nondistended, soft. BS are present : Tender, bulging slightly warm right inguinal hernia. Results & Data Results & Data Vital Signs (Past 12 Hours) Vital Signs Temp Pulse Resp BP Pulse Ox O2 Del Method 12/10/23 10:32 97 12/10/23 10:19 58 L 12/10/23 10:06 36.6 C 56 L 20 114/78 97 Room Air PG Care Time/CCT Total # of Minutes Spent Total Time Spent with Patient: Total time spent is greater than 50% in coordination of care (as documented) at patient's floor/unit and/or counseling patient: Coding Level of Care Code 13409 INT INP/OBS CARE 3/75MIN Diagnoses Small bowel obstruction K56.609 Diarrhea R19.7 B-cell lymphoma C85.10 Parkinson disease G20.A1 Left ventricular hypertrophy I51.7
[2023-12-10] MEDS ORDERED: MoRPHine SULFATE 4 MG/ML 1 ML CARP\\VIAL IV PRN (12:29)
[2023-12-10] MEDS ORDERED: ONDANSETRON INJ 2 MG/ML 2 ML VIAL IV PRN ×2 (12:29→13:20)
--- NOTE | 2023-12-10 12:50 | Surgery Consultation ---
<Statement entered by Oscar Marcos DO - 12/10/23 13:05> I have seen and examined this patient. He was present at the bedside and helps with history. We discussed the surgical procedure along with risks and benefits. He is aware that a mesh will likely need to be sued as he also discussed with Dr. Peña previously when considering repair (as per the patient). He and his mention a family member who had issues with a mesh in the past. I have explained to him the risks including bowel or bladder injury. The possibility of requiring a bowel resection if compromised bowel is encountered or local intermodal truck driver Tom catheterization if there is a bladder injury and possible bladder repair by urology. The possibility of spermatic cord damage was discussed including nerve injury that may cause chronic pain, the inability to ejaculate from that testicle and/or testicular . I have explained that there may be a long road to resolution of all sequale from this and the post operative course with ongoing seroma formation after surgery, testicular swelling. He understands that this may require a lengthy hospital stay depending on the involvement of the surrounding organs and also may require additional procedures. Consent was obtained for an open right inguinal hernia repair with possible mesh. Date of Consultation December 10, 2023 Assessment & Plan (1) Incarcerated right inguinal hernia: This is a 73yM with a PMH of parkinson's, HTN, HLD, b-cell lymphoma, anxiety/depression, cognitive impairment, CLL, who presents to the [facility] ED on 12/10/23 with complaints of abdominal and R groin pain. Symptoms occurred after performing yard work yesterday. His pain is associated with nausea/vomiting/diarrhea that have been worsening since initial onset. He presented to the ER where he underwent a CT a/p was performed that revealed a large right inguinal hernia contains mesenteric fat, ascites, a portion of the urinary bladder and a loop of ileum resulting in associated small bowel obstruction. His R inguinal hernia has been present for at least 30 years. Labs show a WBC 8.3, Hbg 12.5, Cr 1. Vitals are stable and patient bradycardic to the 50's. On examination patient's abdomen is soft and non tender. He has a + tender and bulging R inguinal hernia, unable to reduce 2/2 pain, no obvious overly skin changes. Options discussed with patient and wishing to proceed with open right inguina hernia repair with release of small bowel obstruction as recommended. Patient is agreeable to the plan. He will be booked for surgery with Dr. Jose Elias Thomas today. (2) Small bowel obstruction: History of Present Illness History of Present Illness This is a 73yM with a PMH of parkinson's, HTN, HLD, b-cell lymphoma, anxiety/depression, cognitive impairment, CLL, who presents to the [facility] ED on 12/10/23 with complaints of abdominal and R groin pain. The patient said he was doing yard work yesterday and he lifted a 5 gallon gas can. He immediately thought to himself that he shouldn't have done that. He ended up mowing the lawn and afterwards started to develop abdominal pain. He was unable to eat/drink much. This was associated with some nausea and emesis that he brought up in his mouth. His pain at its worst was rated a 10/10 in severity. As his symptoms did not improve he came to the ER for further evaluation. A CT a/p was performed that revealed a large right inguinal hernia contains mesenteric fat, ascites, a portion of the urinary bladder and a loop of ileum resulting in associated small bowel obstruction. The patient states he has had a known R inguinal hernia present over the last 30 years. He was scheduled for repair, but then Covid happened and he never ended up scheduling. The patient has no prior abdominal surgical history. He reports no CP/SOB, fevers/chills or constipation. He is actually dealing with diarrhea of recent, but denies much flatus. he is voiding his normal. Allergies Allergy/AdvReac Type Severity Reaction Status Date / Time No Known Allergies Allergy Mild Verified 12/10/23 12:22 Home Medications Medication Instructions Recorded Confirmed Type cholecalciferol (vitamin D3) 50 2,000 unit PO QAM 10/01/19 12/10/23 History mcg (2,000 unit) capsule (Vitamin D3) magnesium 250 mg tablet 250 mg PO HS 10/04/20 12/10/23 History multivitamin 1 tab PO HS 11/04/20 12/10/23 History sildenafil 50 mg tablet (Viagra) 50 mg PO DAILY PRN sexual activity 01/15/22 12/10/23 Rx #20 tabs loperamide 2 mg capsule (Imodium 2 mg PO Q6H PRN Diarrhea 12/06/22 12/10/23 History A-D) mecobalamin (vitamin B12) 1,000 1,000 mcg PO HS 01/22/23 12/10/23 History mcg chewable tablet escitalopram oxalate 10 mg tablet 20 mg (2 x 10 mg) PO HS #180 tabs 06/07/23 12/10/23 Rx (Lexapro) donepezil 10 mg tablet 10 mg PO HS #90 tabs 09/13/23 12/10/23 Rx meloxicam 15 mg tablet 15 mg PO DAILY #30 tabs 10/24/23 12/10/23 Rx carbidopa 25 mg-levodopa 100 mg 1 tab PO QID 30 days #120 tabs 10/25/23 12/10/23 Rx tablet carbidopa ER 50 mg-levodopa 200 mg 1 tab PO HS 12/10/23 12/10/23 History tablet,extended release Patient History Medical History History of COVID-19 01/2022--mild symptoms, no symptoms now Hypertension CURRENTLY SELF MONITORING BP AT HOME Hx of glaucoma History of kidney stones History of rib fracture 2018. Eye problem Hereditary disease...B/L History of skin cancer Arthritis Particularly severe in neck -- pt has significant pain when laying flat, requires head to be elevated Basal cell tumor Diverticulosis of colon Inguinal hernia Scoliosis Hearing deficit Surgical History History of cataract surgery RT/LEFT History of colonoscopy last 03/01/20 @ [facility] History of tooth extraction Hx of eye surgery RT/LEFT EYE LASER SURGERY FOR GLAUCOMA History of thoracentesis SUMMER 2017/PUNCTURED LUNG AFTER FALLING/FX RIBS Family History Mother Alzheimer disease Dementia Breast cancer Hypertension Father , age 78 FH: kidney cancer COPD (chronic obstructive pulmonary disease) Hypertension Brother Prostate cancer Depression Thyroid disease Son AA (alcohol abuse) Grandmother (Paternal) Stroke Aunt Breast cancer Stroke Grandmother (Maternal) Breast cancer Other No family history of adverse response to anesthesia Denies family history of Ovarian cancer Myocardial infarction Colorectal cancer Social History Smoking Status: Never smoker Second Hand Exposure: No ( A CHILD); Do You Dip or Chew Tobacco: No (quit chewing); Hx Alcohol Use: Yes Alcohol type: beer Hx Substance Use: No Preferred Language: Croatian Communication Ability: Effective Visual Impairment: No Limitations Hearing Ability: Hard of Hearing Truck Farmer Required: No Beliefs That Will Affect Care: None marital status: Current Living Situation: Spouse current occupational status: retired 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 How many Children do You have: 1 Feels Safe at Home: Yes Childhood Exposure to Second-Hand Smoke: Yes Diet: regular caffeine: Yes Dental Care, Regularly: Yes Physical Activity Frequency: 3-4 Times per Week Seatbelt Use: always Sunscreen Use: Yes Assistive Devices: Cane, Glasses and Hearing Aid - Bilateral Review of Systems Constitutional: + problem reported (always feeling cold) ; no fever and no chills Respiratory: no dyspnea Cardiovascular: no chest pain Gastrointestinal: + abdominal pain, + belching, + bloating , + nausea, + vomiting, + diarrhea/loose stools and + problem reported (pain in R groin) Genitourinary: no problem reported Physical Exam Physical Exam: awake/alert, no distress Constitutional: well developed and well nourished Respiratory: normal respiratory effort Cardiovascular: Rate/Rhythm: + bradycardic Gastrointestinal (Abdomen): Percussion/Palpation: abdomen soft; abdomen nontender + tender and bulging R inguinal hernia, unable to reduce 2/2 pain, no obvious overly skin changes Results & Data Vital Signs (Past 12 Hours) Vital Signs Temp Pulse Resp BP Pulse Ox O2 Del Method 12/10/23 10:32 97 12/10/23 10:19 58 L 12/10/23 10:06 97.9 F 56 L 20 114/78 97 Room Air Diagnostic Findings ABDOMEN AND PELVIS CT WITH IV CONTRAST CT DOSE: 1521.72 mGy.cm HISTORY: Acute right inguinal pain with abdominal distention R inguinal hernia and pain TECHNIQUE: Multiaxial CT images of the abdomen and pelvis were performed following the IV administration of 94 cc of Optiray, A dose lowering technique was utilized adhering to the principles of ALARA. COMPARISON STUDY: 04/23/2023 FINDINGS: Mild cardiomegaly. Clear lung bases. No free air. Unremarkable spleen, pancreas, gallbladder, adrenal glands and liver. Patency of the hepatic and portal veins. Mild cortical thinning of the kidneys. Scattered mostly subcentimeter hypodensities of the right kidney are suggestive of probable cysts. 1.1 cm nonobstructing calculus of the inferior pole right kidney. No ureteral calculi or hydronephrosis. Urinary bladder wall thickening with partial distention. Prostatomegaly. Atherosclerosis of the aorta without aneurysm or dissection. No lymphadenopathy. Tiny hiatal hernia. 2.4 cm submucosal lipoma of the distal stomach/proximal duodenum. Colonic diverticulosis without acute diverticulitis. Air and fluid- filled loops of large and small bowel. Normal appendix. Small bowel obstruction secondary to a large right inguinal hernia, opening of the hernia sac measuring approximately 4 cm and contains mesenteric fat, ascites, portion of the urinary bladder and an obstructed loop of ileum. Loops of ileum upstream to the area of obstruction demonstrates circumferential wall thickening with mild interloop edema. No pneumatosis. No acute fracture. Degenerative changes of the spine and pelvis. IMPRESSION: 1. Large right inguinal hernia contains mesenteric fat, ascites, a portion of the urinary bladder and a loop of ileum resulting in associated small bowel obstruction. 2. No pneumatosis or pneumoperitoneum. 3. Right nephrolithiasis. 4. Additional findings as above. ACT 112: Negative or not required by law. The above report was generated using voice recognition software. It may contain grammatical, syntax or spelling errors. Electronically signed by: Dustin Mckeon M.D. 12/10/2023 11:49 AM PG Care Time/CCT Total # of Minutes Spent Total Time Spent with Patient: Total time spent is greater than 50% in coordination of care (as documented) at patient's floor/unit and/or counseling patient: Coding Level of Care Code 01436 OP VST NEW MOD 45 MIN Diagnoses Incarcerated right inguinal hernia K40.30 Small bowel obstruction K56.609
[2023-12-10] MEDS ORDERED: MIDAZOLAM HCL 1 MG/ML 2ML VIAL ONE (13:06)
[2023-12-10] MEDS ORDERED: fentaNYL citrate PF 100 MCG/2 ML VIAL ONE ×3 (13:06→16:04)
[2023-12-10] MEDS ORDERED: ATROPINE SULFATE 0.1 MG/ML 10ML SYR IV PRN (13:20)
[2023-12-10] MEDS ORDERED: HYDROmorphone INJ 1 MG/ML SYRINGE IV PRN (13:20)
[2023-12-10] MEDS ORDERED: ePHEDrine sulfate 50 MG/ML AMP IV PRN (13:20)
[2023-12-10] MEDS ORDERED: fentaNYL citrate PF 100 MCG/2 ML VIAL IV PRN (13:20)
--- NOTE | 2023-12-10 13:20 | Anesthesiology Consultation ---
Date of Service December 10, 2023 Assessment & Plan ASA ASA3 Proposed Anesthesia Anesthesia Type: General Risk / Benefits Reviewed With: PT / POA / Parent / Guardian, Accepts Plan and Informed Consent Obtained History Surgery Operation Date: 12/10/23 11:30 Proposed Procedures p Right Open Incarcerated Inguinal Hernia Repair - Oscar Marcos DO Height/Weight Height: 5 ft 10 in Weight: 90.5 kg Allergies Allergy/AdvReac Type Severity Reaction Status Date / Time No Known Allergies Allergy Mild Verified 12/10/23 12:22 Medications Home Medications Medication Instructions Recorded Confirmed Last Taken cholecalciferol (vitamin D3) 50 2,000 unit PO QAM 10/01/19 12/10/23 02/25/23 08:00 mcg (2,000 unit) capsule (Vitamin D3) magnesium 250 mg tablet 250 mg PO HS 10/04/20 12/10/23 02/25/23 22:00 multivitamin 1 tab PO HS 11/04/20 12/10/23 02/25/23 22:00 sildenafil 50 mg tablet (Viagra) 50 mg PO DAILY PRN sexual activity 01/15/22 12/10/23 Unknown #20 tabs loperamide 2 mg capsule (Imodium 2 mg PO Q6H PRN Diarrhea 12/06/22 12/10/23 02/19/23 07:00 A-D) mecobalamin (vitamin B12) 1,000 1,000 mcg PO HS 01/22/23 12/10/23 02/25/23 22:00 mcg chewable tablet escitalopram oxalate 10 mg tablet 20 mg (2 x 10 mg) PO HS #180 tabs 06/07/23 12/10/23 Unknown (Lexapro) donepezil 10 mg tablet 10 mg PO HS #90 tabs 09/13/23 12/10/23 Unknown meloxicam 15 mg tablet 15 mg PO DAILY #30 tabs 10/24/23 12/10/23 Unknown carbidopa 25 mg-levodopa 100 mg 1 tab PO QID 30 days #120 tabs 10/25/23 12/10/23 Unknown tablet Lactobacillus acidophilus 10 10,000 mmu cells PO DAILY 12/10/23 12/10/23 Unknown billion cell capsule (Probiotic) carbidopa ER 50 mg-levodopa 200 mg 1 tab PO HS 12/10/23 12/10/23 Unknown tablet,extended release NPO Date Last Intake of Fluids: 12/09/23 Time Last Intake of Fluids: 17:00 Date Last Intake of Solids: 12/09/23 Time Last Intake of Solids: 20:00 Past Medical History Medical History History of COVID-19 01/2022--mild symptoms, no symptoms now Hypertension CURRENTLY SELF MONITORING BP AT HOME Hx of glaucoma History of kidney stones History of rib fracture 2017. Eye problem Hereditary disease...B/L History of skin cancer Arthritis Particularly severe in neck -- pt has significant pain when laying flat, requires head to be elevated Basal cell tumor Diverticulosis of colon Inguinal hernia Scoliosis Hearing deficit Exercise / Class Metabolic Activity II 4-5 Yardwork/Stairs/Walk up hill Past Family History Family History Mother Alzheimer disease Dementia Breast cancer Hypertension Father , age 78 FH: kidney cancer COPD (chronic obstructive pulmonary disease) Hypertension Brother Prostate cancer Depression Thyroid disease Son AA (alcohol abuse) Grandmother (Paternal) Stroke Aunt Breast cancer Stroke Grandmother (Maternal) Breast cancer Other No family history of adverse response to anesthesia Denies family history of Ovarian cancer Myocardial infarction Colorectal cancer Past Surgical History Surgical History History of cataract surgery RT/LEFT History of colonoscopy last 03/01/20 @ [facility] History of tooth extraction Hx of eye surgery RT/LEFT EYE LASER SURGERY FOR GLAUCOMA History of thoracentesis SUMMER 2017/PUNCTURED LUNG AFTER FALLING/FX RIBS Past Anesthesia History No Hx of Anesthesia Complications and No Family Hx of Anesthesia Complications History of PONV No Hx of PONV and No Hx of Motion Sickness Social History Smoking Status: Never smoker tobacco type: smokeless tobacco Do You Dip or Chew Tobacco: No (quit chewing) Hx Alcohol Use: Yes Alcohol type: beer alcohol intake frequency: a few times a week Hx Substance Use: No substance use type: does not use Review of Systems denies fever/cough/ colds/ chest pain/ SOB/ MINNA denies MINNA Physical Exam Vital Signs Last Vital Signs Temp 36.7 C 12/10/23 13:04 Pulse 58 L 12/10/23 13:04 Resp 20 12/10/23 13:04 BP 151/74 H 12/10/23 13:04 Pulse Ox 97 12/10/23 13:04 O2 Del Method Room Air 12/10/23 13:04 ENMT Mouth: no TMJ abnormality and no dentition abnormality Thyromental Distance: > or= 3.5 Finger Breadths Mallampati Class: II Neck neck extension not limited Respiratory normal respiratory effort; no respiratory distress Auscultation: lungs clear to auscultation bilaterally Cardiovascular Rate/Rhythm: regular rate and regular rhythm Neurologic moves all extremities Psychiatric Orientation: alert and oriented x 3 Testing Laboratory Results 12/10/23 10:08 12/10/23 10:08
[2023-12-10] MEDS: LACTATED RINGER'S 1,000 ML IV SCH ×2 (13:24→18:18)
[2023-12-10] MEDS: ceFAZolin 3000MG 3,000 MG/72.5 ML BAG IV SCH (14:20)
[2023-12-10] MEDS ORDERED: LIDOCAINE 2% 2 ML VIAL/AMP(20MG/ML) INFIL ONE (14:22)
[2023-12-10] MEDS ORDERED: PROPOFOL IV EMULSION 10 MG/ML 20 ML VIAL IV ONE (14:22)
[2023-12-10] MEDS ORDERED: ROCURONIUM BROMIDE 10 MG/ML 5 ML VIAL IV ONE ×2 (14:22→14:37)
[2023-12-10] MEDS ORDERED: ONDANSETRON INJ 2 MG/ML 2 ML VIAL ONE (14:22)
[2023-12-10] MEDS ORDERED: DEXAMETHASONE SOD INJ 4 MG/ML VIAL ONE (14:22)
[2023-12-10] MEDS ORDERED: SUGAMMADEX SODIUM 200 MG/2 ML VIAL IV ONE (15:49)
[2023-12-10] MEDS: BACITRACIN OINT 14 GM TUBE ONE (15:58)
[2023-12-10] MEDS: BUPIVACAINE/EPINEPHRINE 0.5% MPF 1:200,000 30 ML VIAL ONE (15:58)
--- NOTE | 2023-12-10 16:12 | Operative Report ---
PG Post Operative Report Pre & Post Diagnosis Operation Date: 12/10/23 11:30 Pre-Op Diagnosis: Incarcerated right inguinal hernia Post-Op Diagnosis: Incarcerated right inguinal hernia I identified the patient and participated in the time-out.: Yes Procedure Operation Date: 12/10/23 11:30 Actual Procedures p Right Open Incarcerated Inguinal Hernia Repair(Right) - Oscar Thomas DO Surgeon Oscar Marcos DO Citizenship Instructor Grover Hopper NP Estimated Blood Loss 5 Findings See Below Large right inguinal hernia containing small bowel and bladder Specimens None Anesthesia Type General Complications None Indications Incarcerated right inguinal hernia causing obstruction Description of Procedure The patient was brought back to the operating room and placed on the operating room table in supine position. He was connected to cardiac and oxygen monitoring. Supplemental O2 was provided and SCDs were applied to bilateral lower extremities. The patient was administered general anesthesia and a secure airway was established. A Tom catheter was inserted. The lower abdomen and groins were prepped and draped in typical sterile fashion. A timeout was conducted. A marking pen was used to leonides a line for planned incision over the right groin. Local anesthetic was used to anesthetize the skin and subcutaneous tissue. A 15 blade was used to make a full-thickness skin incision between the pubic tubercle and right ASIS. A small vein was suture-ligated in the subcutaneous tissues. The tissue was dissected to the level of the external oblique aponeurosis. Bulging contents were immediately noted inferior to the inguinal ligament and the external ring. The external oblique was opened with a scalpel and the edges were grasped with hemostats. A Metzenbaum scissor was used to extend the inguinal ligament opening to the external ring and extended toward the internal ring. The spermatic cord was encircled with a Jina drain. The herniated tissues were dissected away from the spermatic cord. The inguinal nerve was purposely suture-ligated and transected as this was in the way of planned dissection. The hernia sac was very thin. The edge of the bladder was identified within the lower edge of the hernia sac and was not injured. The bladder was dissected along with the bowel and omentum away from the spermatic cord. The bowel was able to be visualized through the hernia sac and was not compromised. The hernia sac in its entirety was reduced into the intra-abdominal space. A sponge on a towel clamp was used to keep the contents reduced into the internal ring. Silk 2-0 sutures were used to reinforce the transversalis fascia at the floor of the inguinal canal and recreate the internal ring. A large Bard polypropylene mesh was shaped to fit the right inguinal canal and around the spermatic cord. The mesh was attached to Steve's ligament medially using 2-0 Prolene sutures. The medial aspect of the mesh was placed over the internal oblique aponeurosis and secured to it using Prolene sutures. The cream tails of the mesh were wrapped around the internal ring leaving ample room for the spermatic cord. These were secured together laterally. The area was copiously irrigated and dried. Anesthetic was injected into the surrounding tissues. The external oblique aponeurosis was approximated using 2-0 Vicryl suture. Franky's fascia was also closed using 2-0 Vicryl suture. The deep dermis was closed using 3-0 Vicryl suture and skin alexandre were applied to the incision. The incision was dressed with bacitracin, Telfa and gauze secured in place with cloth perforated tape. I attest to the content of the Intraoperative Record and any orders documented therein. Any exceptions are noted below.
--- NOTE | 2023-12-10 16:57 | Anesthesiology Progress Note ---
Date of Service December 10, 2023 Anesthesia Post Procedure Vital Signs Vital Signs: Temp Pulse Pulse Pulse Resp BP BP 12/10/23 16:50 36.4 C L 65 14 109/54 L 12/10/23 16:40 60 16 114/60 12/10/23 16:30 61 16 121/56 L 12/10/23 16:20 36.8 C 55 L 12 143/54 H 12/10/23 13:04 36.7 C 58 L 20 151/74 H 12/10/23 12:30 64 16 12/10/23 12:00 60 16 12/10/23 12:00 161/88 H 12/10/23 11:32 13 12/10/23 11:00 153/94 H 12/10/23 11:00 54 L 18 12/10/23 10:50 131/69 12/10/23 10:50 57 L 16 12/10/23 10:32 12/10/23 10:30 58 L 18 12/10/23 10:19 58 L 12/10/23 10:06 36.6 C 56 L 20 114/78 12/10/23 10:02 57 L 18 Pulse Ox O2 Del Method O2 Flow Rate 12/10/23 16:50 97 Nasal Cannula 2 12/10/23 16:40 100 Oxymask 6 12/10/23 16:30 96 Oxymask 8 12/10/23 16:20 95 Oxymask 10 12/10/23 13:04 97 Room Air 12/10/23 12:30 95 12/10/23 12:00 96 12/10/23 12:00 12/10/23 11:32 95 12/10/23 11:00 12/10/23 11:00 93 12/10/23 10:50 12/10/23 10:50 97 12/10/23 10:32 97 12/10/23 10:30 98 12/10/23 10:19 12/10/23 10:06 97 Room Air 12/10/23 10:02 96 Transfer of Care Handoff Completed per policy Notes Mental Status: alert / awake / arousable Patient Amnestic to Procedure: Yes Nausea / Vomiting: adequately controlled Pain: adequately controlled Airway Patency, RR, SpO2: stable & adequate BP & HR: stable & adequate Hydration State: stable & adequate Anesthetic Complications: no major complications apparent and Pt Satisfied with anesthetic care
[2023-12-10] MEDS ORDERED: oxyCODONE HCL IR 5 MG TAB (IMMEDIATE RELEASE) PO PRN (17:57)
[2023-12-10] MEDS ORDERED: POLYETHYLENE (MIRALAX) 17 GM PACK PO PRN (17:57)
[2023-12-10] MEDS ORDERED: ACETAMINOPHEN 325 MG TAB PO PRN (17:57)
[2023-12-11] MEDS: MoRPHine SULFATE 2 MG/ML CARP IV PRN (01:09)
[2023-12-11 01:49] LABS: Appearance Urine Clear (Clear); Bacteria Urine Automated None Seen (None Seen); Bilirubin Urine Negative (Negative); Blood Urine 1+ (Negative); Color Urine Yellow; Epithelial Cell Urine Auto 0-2 /hpf (0-2); Glucose Urine UA Negative (Negative); Ketones Urine Trace (Negative); Leukocyte Esterase Urine Trace (Negative); Nitrite Urine Negative (Negative); Protein Urine Trace (Negative); Specific Gravity Urine > 1.045 (1.000-1.030); Urobilinogen Urine Negative (Negative); pH Urine 5.5 (4.5-7.5)
[2023-12-11] MEDS: ACETAMINOPHEN 1,000 MG/100 ML VIAL IV PRN (03:16)
[2023-12-11 06:37] LABS: Basophils # (auto) 0.01 K/uL (0.00-0.20); Basophils % (auto) 0.1 %; Eosinophils # (auto) 0.01 K/uL (0.00-0.50); Eosinophils % (auto) 0.1 %; Hematocrit (blood only) 32.1 % (42.0-52.0); Hemoglobin 11.1 g/dl (14.0-18.0); Immature Granulocytes # (auto) 0.08 K/uL (0.01-0.20); Immature Granulocytes % (auto) 0.7 %; Lymphocytes # (auto) 0.92 K/uL (1.20-3.40); Lymphocytes % (auto) 8.2 %; Mean Corpuscular Hemoglobin 30.9 pg (25.0-34.0); Mean Corpuscular Hgb Conc 34.6 g/dL (32.0-36.0); Mean Corpuscular Volume 89.4 fL (80.0-100.0); Mean Platelet Volume 11.1 fL (9.4-12.4); Monocytes # (auto) 0.82 K/uL (0.11-0.59); Monocytes % (auto) 7.3 %; Neutrophils % (auto) 83.6 %; Platelet Count 98 K/uL (130-400); RDW Standard Deviation 45.6 fL (36.4-46.3); Red Blood Count 3.59 M/uL (4.70-6.10); White Blood Count 11.24 K/ul (4.8-10.8)
[2023-12-11 07:01] LABS: BUN Creatinine Ratio 19.8 (10-20); Calcium 9.1 mg/dl (8.6-10.3); Creatinine Clr Calc Pharmacy 61.5 ml/min; Est GFR (African American) 68.4 ml/min; Potassium 3.8 mmol/L (3.5-5.1)
--- NOTE | 2023-12-11 07:49 | Surgery Progress Note ---
Date of Service December 11, 2023 Assessment & Plan (1) Incarcerated right inguinal hernia: Plan: POD#1 right inguinal hernia repair (open) WBC 11.2. Vitals are stable Pt reports feeling well. Pain controlled. Denies nausea/vomiting. + flatus Tolerating diet Appreciate medicines assistance with patient Pending patient's progress possibly could dispo later today from our standpoint pending medicine clearance Will need f/u in clinic within [address] Marcos (2) Small bowel obstruction: Admission and Anticipated Discharge Date Admission Date: December 10, 2023 Supervising Physician Co-Signing Physician Notes I have seen and examined this patient this am. I agree with the plan. He may be discharged from a surgical standpoint if no ongoing medical concerns. Subjective Patient states that he is feeling well. He says his pain is minimal, currently 3/10. He is tolerating food thus far no nausea/vomiting. He is voiding. + flatus, no BM. Physical Exam Physical Exam: awake/alert, no distress Respiratory: normal respiratory effort Gastrointestinal (Abdomen): Inspection/Auscultation: + abdominal surgical incision (surgical dressing intact, + alexandre); abdomen not distended Percussion/Palpation: abdomen soft; abdomen nontender Results & Data Vital Signs (Past 12 Hours) Vital Signs Temp Pulse Resp BP Pulse Ox O2 Del Method O2 Flow Rate 12/10/23 22:34 98.1 F 72 18 134/72 93 Room Air 12/10/23 19:50 Nasal Cannula 1 PG Care Time/CCT Total # of Minutes Spent Total Time Spent with Patient: Total time spent is greater than 50% in coordination of care (as documented) at patient's floor/unit and/or counseling patient: Coding Level of Care Code 05709 Post Operative Follow-Up Diagnoses Incarcerated right inguinal hernia K40.30 Small bowel obstruction K56.609
[2023-12-11] MEDS: CHOLECALCIFEROL 25 MCG (1000 UNITS) TAB PO SCH (09:36)
[2023-12-11] MEDS: CARBIDOPA/LEVODOPA 25/100MG TAB PO SCH (09:37)
--- NOTE | 2023-12-11 11:26 | Discharge Summary ---
Date of Service December 11, 2023 Admission HPI Per Admitting Provider Colby is a 73-year-old male with past medical history of depression/anxiety on Lexapro, cognitive impairment, chronic left shoulder pain, CLL stable and on routine follow-up with oncology, right inguinal hernia for which surgical repair had been deferred 04/2023 due to concerns about the mesh, cervical facet joint syndrome followed by orthospine, Parkinson's disease on Sinemet 4 times daily with ER at bedtime and some associated cognitive decline presents to the emergency department with over 10 episodes of vomiting and 15 episodes of diarrhea over the last 12-16 hours, no hematemesis/hematochezia/melena. On ER a ssessment he is normotensive and bradycardic, he does not have a leukocytosis, does not have an BRITTANY. CTA/P shows a large right inguinal hernia with mesenteric fat/ascites/urinary bladder/loop of ileum contained resulting in an associated small bowel obstruction. No pneumatosis or pneumoperitoneum is seen. EKG on admission is sinus bradycardia with an incomplete right bundle branch block, QTc 418 no territorial ischemic changes; incomplete right bundle branch block which previously demonstrated February 2022. Patient seen with his present at the bedside. He reports his symptoms started abruptly yesterday afternoon when he was lifting a gas can and all of a sudden had pain in his right inguinal hernia site and then developed worsening nausea/vomiting. No bloody or black content in his emesis. He notes he was having several episodes per day of very loose/liquid diarrhea for a few days that preceded this and that he "had been feeling a little off ". No history of C. difficile, no recent antibiotic use. Has not had nausea/vomiting until last night. Denies any history of CHF. No chest pain or chest pressure. Has had intermittent wheezing but denies history of smoking use, asthma, COPD. Did take his medications this morning, but also had vomiting around 9 AM. Denies history of insulin treatment Medical History: Reviewed Medications: Reviewed Surgical History: Reviewed Family history: Reviewed Allergies: Reviewed Social History: Reviewed Code Status: DNR/DNI Principal Diagnosis Incarcerated right inguinal hernia causing small bowel obstruction Discharge Exam General-alert and oriented x3, no fever, no chills HEENT-head atraumatic and normocephalic, pupils equal and reactive to light, extraocular muscles intact Neck-no lymphadenopathy or thyromegaly, trachea midline Chest-clear to auscultation. No rales, wheezing or rhonchi Cardiac-regular rate and rhythm, normal S1 and S2 Abdomen-normal bowel sounds, no hepatosplenomegaly. Right inguinal hernia surgical site is bandaged Extremities-no cyanosis, clubbing, or edema Neuro-cranial nerves II through XII intact, motor and sensory function within normal limits, strength symmetrical with age-related weakness, no focal deficits Psych-normal affect, normal mood Discharge Data Allergies Allergy/AdvReac Type Severity Reaction Status Date / Time No Known Allergies Allergy Mild Verified 12/10/23 12:22 Consultations 12/10/23 12:00 Consult General Surgery Stat ED Decision to Admit Stat Procedures Performed Operation Date: 12/10/23 11:30 Actual Procedures p Right Open Incarcerated Inguinal Hernia Repair(Right) - Oscar Thomas DO Ordered Studies 12/10/23 10:37 CT abd pelvis IV con only Stat Hospital Course (1) Small bowel obstruction: Due to incarcerated right inguinal hernia. This has been relieved by surgical intervention, postoperative day 1. General surgery consultation and recommendations appreciated. He has been cleared for discharge to home later today, December 10. l (2) Diarrhea: liquid diarrhea the week before his pain started related to the right inguinal hernia. This was followed by nausea and vomiting. No recent antibiotic use. No signs of colitis on CT (3) B-cell lymphoma: Stable. No intervention necessary at this time. (4) Parkinson disease: Stable. Usual oral medications have been resumed. (5) Left ventricular hypertrophy: Seen on most recent cardiac echo. Stable. Patient denies history of CHF or need for diuresis Plan Home later today, December 10. He will use oxycodone as needed for any recurrent pain. He will follow-up with general surgery in 1 to 2 weeks. Total Time Total Time Spent Total Time Spent (In Minutes): 45 minutes Discharge Plan Discharge Items Patient Disposition: Home - Self-Care Reason For Visit: SBO 2/2 HERNIA Discharge Diagnosis: Small bowel obstruction secondary to incarcerated right inguinal hernia Activity: Per Instructions section Activity Comment: Avoid over exertion until cleared by general surgery Lifting: No more than 10 pounds Bathing Comment: may shower; no soaking in tubs/pools x 2 weeks Exercise/Sports: Wait until after follow-up appointment Driving/Machine Use: no driving until cleared by the surgeon Non-emergency contact: Primary Care Provider and Surgeon Call non-emergency contact if: you have any medication questions, your pain is not controlled, you have a fever, your temperature is above 101.5, your wound has increased redness and your wound has increased drainage Follow-up/Referrals: Colleen Chapman MD [Primary Care Provider] - Judith-Oscar Thomas DO [Physician] - (please call to schedule follow up in clinic within 2 weeks ) Diet: Regular and Heart Healthy Addtl Attending Provider Instructions: You have surgical alexandre in place that will be removed when you follow up in the office. You may keep a dry dressing over your incision if needed for comfort (dry gauze/ and medical tape). Change this daily and as needed You may ice your groin on and off alternating every 20 minutes as needed to help with pain and swelling over the next few days. May wear a scrotal support as needed Pending Studies at Discharge: No Stand-Alone Forms: My [facility] [employer], Smoking Cessation Medications and DC Order Prescriptions: New oxycodone 5 mg Tablet 5 mg PO Q4H PRN (Reason: pain) Qty: 20 0RF Continued escitalopram oxalate [Lexapro] 10 mg tablet 20 mg PO HS Qty: 180 1RF donepezil 10 mg tablet 10 mg PO HS Qty: 90 1RF meloxicam 15 mg tablet 15 mg PO DAILY Qty: 30 2RF loperamide [Imodium A-D] 2 mg capsule 2 mg PO Q6H PRN (Reason: Diarrhea) magnesium 250 mg tablet 250 mg PO HS sildenafil [Viagra] 50 mg tablet 50 mg PO DAILY PRN (Reason: sexual activity) Qty: 20 3RF Rx Instructions: administer 30 minutes to 4 hours before activity mecobalamin (vitamin B12) 1,000 mcg tablet,chewable 1,000 mcg PO HS carbidopa-levodopa 25-100 mg tablet 1 tab PO QID 30 Days Qty: 120 3RF Rx Instructions: 6 am, 10 am , 2 pm and 6 pm - 1 tab cholecalciferol (vitamin D3) [Vitamin D3] 50 mcg (2,000 unit) Capsule 2,000 unit PO QAM multivitamin Tablet 1 tab PO HS carbidopa-levodopa 50-200 mg tablet extended release 1 tab PO HS Probiotic 10 billion cell Capsule 10,000 mmu cells PO DAILY Discharge Orders: Discharge Order (Routine); Ordered 12/11/23 Ordered By: Harry Lucio Admission Data Admit Date/Time: 12/10/23 13:05 Attending Provider: Harry Lucio Admit Provider: Art Cordero Primary Care Provider: Colleen Chapman Other Providers: Oscar Marcos; Art Cordero Coding Level of Care Code 28104 INP/OBS DISCH >30 MIN Diagnoses Small bowel obstruction K56.609 Diarrhea R19.7 B-cell lymphoma C85.10 Parkinson disease G20.A1 Left ventricular hypertrophy I51.7
[2023-12-11] MEDS: oxyCODONE HCL IR 5 MG TAB (IMMEDIATE RELEASE) PO PRN (13:16)
[2023-12-11] MEDS ORDERED: CARBIDOPA/LEVODOPA 50/200MG EXT REL TAB PO SCH (21:00)
[2023-12-11] MEDS ORDERED: ESCITALOPRAM OXALATE 20 MG TAB PO SCH (21:00)
[2023-12-11] MEDS ORDERED: DONEPEZIL HCL 10 MG TAB PO SCH (21:00)
== END 2023-12-11 13:57 | disposition home or self-care (01) | DRG 351 ==
LOC: ED 09:56 → OR 13:02 → 3E 13:02 → SUATTDRO 13:05 → 3E 13:05